=== PATIENT | male | born 1945 | race Caucasian/White ===

== ENCOUNTER → 2017-01-19 09:41 | Outpatient (CLI) | payer MEDICARE, BC | END | disposition home or self-care (01) | LOC: D.RAD 09:41 | DX: R06.00 Dyspnea, unspecified (principal) ==

== ENCOUNTER 2020-08-10 09:14 | Emergency (ER) | payer MEDICARE, BC ==
[~2020-08-10] VITALS: Ht 172.7 cm; Wt 90.9 kg
[2020-08-10 09:22] VITALS: Ht 172.7 cm; Wt 90.9 kg
[2020-08-10] MEDS ORDERED: ZOFRAN ODT4 MG/UDTAB PO (11:44)
== END 2020-08-10 12:21 | disposition home or self-care (01) ==
LOC: D.ER 09:14
DX: R51.9 Headache, unspecified (principal); R11.2 Nausea with vomiting, unspecified; K21.9 Gastro-esophageal reflux disease without esophagitis; Z95.0 Presence of cardiac pacemaker

== ENCOUNTER 2020-08-12 08:04 | Emergency (ER) | payer MEDICARE, BC ==
[~2020-08-12] VITALS: Ht 172.7 cm; Wt 90.9 kg
[~2020-08-12 08:04] MED LIST: ZOFRAN ODT4 MG/UDTAB PO
[2020-08-12 08:09] VITALS: Ht 172.7 cm; Wt 90.9 kg
[2020-08-12 09:15] LABS: BASOPHILS 0.6 % (0-2); HEMATOCRIT 42.4 % (42.0-54.0); LYMPHOCYTES 21.2 % (15-50); MCH 27.9 pg (26.0-34.0); MCHC 33.1 g/dL (31.0-37.0); MCV 84.5 fL (80.0-100.0); MONOCYTES 9.6 % (2-11); NEUTROPHILS 63.6 % (40-80); PLATELET COUNT 297 10x3/uL (130-400); RBC 5.02 10x6/uL (4.20-6.10); RDW 15.1 % (11.5-14.5); WBC 10.6 10x3/uL (4.8-10.8)
[2020-08-12 09:18] LABS: APTT 31.3 SECONDS (22.8-39.4); INR 1.08 (0.85-1.17)
[2020-08-12 09:19] LABS: CALC OSMOLALITY 277 mosm/kg (275-300); CALCIUM 8.5 mg/dL (8.5-10.1); CARBON DIOXIDE 29.8 mmol/L (21.0-32.0); CHLORIDE - SERUM 103 mmol/L (98-107); GLUCOSE 102 mg/dL (74-106); POTASSIUM - SERUM 4.1 mmol/L (3.5-5.1); SODIUM 138 mmol/L (136-145); UREA NITROGEN 18 mg/dL (7-18); eGFR NON AFRICAN AMERICAN 78 mL/min (90-120)
[2020-08-12 09:35] LABS: ALBUMIN 3.3 g/dL (3.4-5.0); ALKALINE PHOSPHATASE 71 U/L (30-120); ALT (SGPT) 19 U/L (10-68); BILIRUBIN - TOTAL 0.53 mg/dL (0.2-1.3); CKMB 0.5 U/L (0.0-3.6); CREATINE KINASE 29 UL (21-232); MAGNESIUM - SERUM 2.2 mg/dL (1.8-2.4); PROTEIN - SERUM 7.2 g/dL (6.4-8.2); THYROID STIMULATING HORMONE 3.42 uIU/mL (0.36-3.74)
[2020-08-12 09:38] LABS: TROPONIN-I < 0.017 ng/mL (0.000-0.060)
[2020-08-12] MEDS ORDERED: ZOFRAN ODT4 MG/UDTAB PO (13:43)
[2020-08-12 15:56] VITALS: BP 144/78
== END 2020-08-12 15:59 | disposition home or self-care (01) ==
LOC: D.ER 08:04
PROVIDERS: Family Medicine
DX: R51.9 Headache, unspecified (principal); J01.90 Acute sinusitis, unspecified; Z95.0 Presence of cardiac pacemaker; K21.9 Gastro-esophageal reflux disease without esophagitis